=== PATIENT | male | born 1945 | race Caucasian/White ===

== ENCOUNTER 2019-10-23 09:53 | Emergency (ER) | payer SELFPAY ==
[~2019-10-23] VITALS: Ht 177.8 cm; Wt 77.1 kg
[2019-10-23 10:30] LABS: BASOPHILS % 0.3 % (0.0-1.0); HEMOGLOBIN 12.2 g/dL (14.0-18.0); LYMPHOCYTES # (AUTO) 0.7 (1.0-3.2); LYMPHOCYTES % 17.7 % (18.0-39.1); MEAN CORPUSCULAR HEMOGLOBIN 29.2 pg (28-32); MEAN CORPUSCULAR VOLUME 88.5 fL (81-99); MONOCYTES # (AUTO) 0.5 (0.2-0.8); MONOCYTES % 11.4 % (4.4-11.3); NEUTROPHILS # (AUTO) 2.8 (2.1-6.9); NEUTROPHILS % 70.1 % (38.7-80.0); PLATELET COUNT 146 x10e3/uL (140-360); RED BLOOD COUNT 4.18 x10e6/uL (4.3-5.7); RED CELL DISTRIBUTION WIDTH 12.6 % (11.7-14.4)
--- NOTE | 2019-10-23 10:35 | Diagnostic Imaging Report ---
X-ray chest AP portable History: Covid Comparison: None. Findings: Central airways unremarkable. Heart size normal. Atherosclerotic aorta. Right costophrenic angle excluded. But no significant pleural effusion. No pneumothorax. No definite focal lung disease or nodules. Visualized skeletal structures unremarkable. Upper abdomen not well-visualized. Impression: No significant acute cardiopulmonary disease. Signed by: Murali Stockton MD on 10/23/2019 10:32 AM
--- NOTE | 2019-10-23 10:58 | NUR ---
WAS NOTIFIED THAT PT IS FROM [facility] BUT FOUND WONDERING, POLICE NOTIFIED AMBULANCE PICKED UP AND DIRECTED HERE. CALLED BUILDING REP, LET HIM KNOW ABOUT SITUATION, HE WILL FIND OUT WHAT IS GOING ON AND WHAT WILL HAVE TO DO TO ACCOMMODATE THIER PATIENT.
[2019-10-23 11:00] LABS: ALANINE AMINOTRANSFERASE 9 IU/L (0-55); ALBUMIN 3.4 g/dL (3.5-5.0); ALBUMIN/GLOBULIN RATIO 1.1 (0.8-2.0); ALKALINE PHOSPHATASE 58 IU/L (40-150); BLOOD UREA NITROGEN 11 mg/dL (7-26); BUN/CREATININE RATIO 14 (6-25); CALCIUM 8.7 mg/dL (8.4-10.2); CARBON DIOXIDE 24 mmol/L (22-29); CHLORIDE 106 mmol/L (98-107); CREATINE KINASE 305 IU/L (30-200); CREATININE, SERUM 0.76 mg/dL (0.72-1.25); EST GLOMERULAR FILTRATION RATE > 60 ML/MIN (60-); GLUCOSE 95 mg/dL (74-118); SODIUM 138 mmol/L (136-145)
--- NOTE | 2019-10-23 11:08 | NUR ---
Per MD patient is stable to discharge however, trying to find patient's place of residence in order to get patient home.
--- NOTE | 2019-10-23 11:09 | NUR ---
pt came by ems billyian. pt was sent to [facility] er from [facility]. pt wandered away from er so [facility] called police, and police found pt and called ems to transport. ems brought pt here stating [facility] lobby "too full." pt with [facility] arm band on. professor of social work consult called. police were called and stated pt lives at [facility]. when [facility] called to update, they refused return because he is covid. professor of social work in er to help.
--- NOTE | 2019-10-23 11:12 | Emergency Department Note ---
History of Present Illnes History of Present Illness Chief Complaint: COVID PUI History of Present Illness This is a 74 year old male arrives to the ED after being found wandering PD. EMS states patient was at [facility] and eloped from there. Per EMS patient was Covid positive and was found wandering in the street when the police department called. EMS subsequent brought the patient to [facility]. Patient has underlying dementia and is unable to give detailed history, he is oriented only to self Historian: General Machinist/EMS EMS Treatment GAMMA FACILITIES OPERATOR: IV Additional Treatment GAMMA FACILITIES OPERATOR: n/a History limited by: condition of the patient Onset quality: unable to specify Timing of current episode: constant Progression: unable to specify Past Medical/Family History Physician Review I have reviewed the patient's past medical and family history. Any updates have been documented here. Past Medical History Recent Fever: No Clinical Suspicion of Infectio: No New/Unexplained Change in Ment: Yes Past Medical History: None Other Medical History: unknown history Past Surgical History: None Other Surgery: unknown history Social History Smoking Cessation: Unknown if ever smoked Counseling Performed: No Alcohol Use: None Any Illegal Drug Use: No Other Any Pre-Existing Lines (PICC,: No Review of Systems Review of Systems Constitutional: Reports no symptoms EENTM: Reports no symptoms Cardiovascular: Reports no symptoms Respiratory: Reports no symptoms Gastrointestinal: Reports no symptoms Genitourinary: Reports no symptoms Musculoskeletal: Reports no symptoms Integumentary: Reports no symptoms Neurological: Reports as per HPI Psychological: Reports no symptoms Endocrine: Reports no symptoms Hematological/Lymphatic: Reports no symptoms Physical Exam Related Data Triage Vital Signs Vital Signs Date Time Temp Pulse Resp B/P (MAP) Pulse Ox O2 Delivery O2 Flow Rate FiO2 10/23/19 10:11 98.5 93 21 126/75 100 10/23/19 10:14 Nasal Cannula 4.0 Vital signs reviewed: Yes Physical Exam CONSTITUTIONAL Constitutional: Present well-developed, Present well-nourished HENT HENT: Present normocephalic, Present atraumatic, Present oropharynx clear/moist, Present nose normal HENT L/R: Present left ext ear normal, Present right ext ear normal EYES Eyes: Reports PERRL, Reports conjunctivae normal NECK Neck: Present ROM normal PULMONARY Pulmonary: Present effort normal, Present breath sounds normal CARDIOVASCULAR Cardiovascular: Present regular rhythm, Present heart sounds normal, Present capillary refill normal, Present normal rate GASTROINTESTINAL Abdominal: Present soft, Present nontender, Present bowel sounds normal GENITOURINARY Genitourinary: Present exam deferred SKIN Skin: Present warm, Present dry MUSCULOSKELETAL Musculoskeletal: Present ROM normal NEUROLOGICAL Neurological: Present alert, Present no gross motor or sensory deficits PSYCHOLOGICAL Results Laboratory Result Diagram: 10/23/19 1005 10/23/19 1005 Laboratory Laboratory Tests Test 10/23/19 10:05 White Blood Count 3.95 x10e3/uL (4.8-10.8) Red Blood Count 4.18 x10e6/uL (4.3-5.7) Hemoglobin 12.2 g/dL (14.0-18.0) Hematocrit 37.0 % (38.2-49.6) Mean Corpuscular Volume 88.5 fL (81-99) Mean Corpuscular Hemoglobin 29.2 pg (28-32) Mean Corpuscular Hemoglobin Concent 33.0 g/dL (31-35) Red Cell Distribution Width 12.6 % (11.7-14.4) Platelet Count 146 x10e3/uL (140-360) Neutrophils (%) (Auto) 70.1 % (38.7-80.0) Lymphocytes (%) (Auto) 17.7 % (18.0-39.1) Monocytes (%) (Auto) 11.4 % (4.4-11.3) Eosinophils (%) (Auto) 0.0 % (0.0-6.0) Basophils (%) (Auto) 0.3 % (0.0-1.0) Neutrophils # (Auto) 2.8 (2.1-6.9) Lymphocytes # (Auto) 0.7 (1.0-3.2) Monocytes # (Auto) 0.5 (0.2-0.8) Eosinophils # (Auto) 0.0 (0.0-0.4) Basophils # (Auto) 0.0 (0.0-0.1) Absolute Immature Granulocyte (auto 0.02 x10e3/uL (0-0.1) Sodium Level 138 mmol/L (136-145) Potassium Level 4.0 mmol/L (3.5-5.1) Chloride Level 106 mmol/L (98-107) Carbon Dioxide Level 24 mmol/L (22-29) Anion Gap 12.0 mmol/L (8-16) Blood Urea Nitrogen 11 mg/dL (7-26) Creatinine 0.76 mg/dL (0.72-1.25) Estimat Glomerular Filtration Rate > 60 ML/MIN (60-) BUN/Creatinine Ratio 14 (6-25) Glucose Level 95 mg/dL (74-118) Calcium Level 8.7 mg/dL (8.4-10.2) Total Bilirubin 0.7 mg/dL (0.2-1.2) Aspartate Amino Transf (AST/SGOT) 29 IU/L (5-34) Alanine Aminotransferase (ALT/SGPT) 9 IU/L (0-55) Alkaline Phosphatase 58 IU/L (40-150) Creatine Kinase 305 IU/L (30-200) Creatine Kinase MB 2.80 ng/mL (0-5.0) Troponin I < 0.001 ng/mL (0-0.300) Total Protein 6.5 g/dL (6.5-8.1) Albumin 3.4 g/dL (3.5-5.0) Globulin 3.1 g/dL (2.3-3.5) Albumin/Globulin Ratio 1.1 (0.8-2.0) Lab results reviewed: Yes Imaging Imaging results reviewed: Yes Impressions Findings: Central airways unremarkable. Heart size normal. Atherosclerotic aorta. Right costophrenic angle excluded. But no significant pleural effusion. No pneumothorax. No definite focal lung disease or nodules. Visualized skeletal structures unremarkable. Upper abdomen not well-visualized. Impression: No significant acute cardiopulmonary disease Assessment & Plan Medical Decision Making MDM 74-year-old male arrives to the ED after being found the street, patient well- appearing other than underlying dementia. Patient's labwork unremarkable. Patient with normal chest x-ray. Patient does not require supplemental oxygen. Patient is Covid positive as tested at [facility], however, there are no indications for hospital admission at this time. Assessment & Plan Final Impression: (1) COVID-19 Depart Disposition: DIS TO JAIL BED Last Vital Signs Date Time Temp Pulse Resp B/P (MAP) Pulse Ox O2 Delivery O2 Flow Rate FiO2 10/23/19 10:48 71 22 126/75 100 10/23/19 10:14 98.5 Nasal Cannula 4.0 JUDY MATIAS DO Oct 23, 2019 11:12
--- NOTE | 2019-10-23 11:58 | NUR ---
CALLED SCALLOP BINDER AT [phone] BHANU, HE STATED THAT HE WAS ATTEMPTED TO CONTACT A SISTER FACILITY THAT WILL ACCEPT COVID POSITIVE PTS, ESTRELLA TOLD HIM NO AND HE IS REACHING OUT TO OTHER FACILITIES TO ASSIST. HE WILL CALL BACK AND LET ME KNOW WHERE TO SEND PT. KIRSTIN LEI FRIEND AND VB NET DEVELOPER [phone] CALLED AND STATES THE PT IS ORIGINALLY PUT [facility] L[facility]ED [facility] AND THE SISTER MILENA BEVERLY IS THE GUARDIAN [phone]. WILL UPDATE WHEN GET FURTHER INFORMATION.
--- NOTE | 2019-10-23 12:25 | NUR ---
Patient is being discharged however, awaiting location to transfer patient being that he is from a jail who can not receive him back being that he is Covid (+).
--- NOTE | 2019-10-23 12:45 | NUR ---
Went to check on patient. Informed patient that we were still awaiting on a facility in which he would be accepted to patient verbalized understanding. Also asked patient if he would like something to eat, patient stated that he was not hungry at this time.
--- NOTE | 2019-10-23 14:04 | NUR ---
SPOKE WITH FACILITY, THEY ARE MOVING THINGS AROUND TO BE ABLE TO ACCOMIDATE THE ISOLATION NEEDS FOR THIS PT. SOON ABLE TO ACCEPT WILL SET UP TRANSPORT FOR PT TO RETURN TO FACILITY.
--- NOTE | 2019-10-23 16:04 | NUR ---
PT IS ABLE TO RETURN TO FACILITY, CALLED [facility] TO RETURN [facility]. [facility] BEING LISTED SELF PAY, FOUND THAT HE HAS [facility] BENEF[facility] CALLED [facility] [phone] [facility]ENEF[facility] FOR [facility] [phone] AND SPOKE WITH DELMY Lei TO GET CONTRACT REINSTATED FOR FACILITY TO GET PAYMENT AND NOTIFIED ADMISSION TO BE ABLE TO BILL FOR [employer]. SPOKE WITH PAULINE VASQUEZ ASSIGNED TO THIS PT AND GAVE ALL INFORMATION. PT TO RETURN TO FACILITY.
--- NOTE | 2019-10-23 16:55 | NUR ---
awaiting transport to another facility.
[2019-10-23 18:05] VITALS: BP 130/80
== END 2019-10-23 18:09 ==
LOC: ER 09:59
DX: U07.1 COVID-19 (principal); F03.90 Unspecified dementia, unspecified severity, without behavioral disturbance, psychotic disturbance, mood disturbance, and anxiety
CPT/HCPCS: 36415; 71045; 80053; 82550; 82553; 84484; 85025; 99284